=== PATIENT | female | born 1985 | race Two or more races ===

== ENCOUNTER 2023-08-16 20:40 | Inpatient (IN) | payer MEDICAID ==
[~2023-08-16] VITALS: Ht 157.5 cm; Wt 113.4 kg
[2023-08-16 21:56] VITALS: BP 124/76; TEMP 97.9; O2SAT 98
[2023-08-16] MEDS ORDERED: IV NS 0.9% 1,000 ML IV PRN (23:30)
[2023-08-16] MEDS ORDERED: ONDANSETRON HCL/PF 4 MG/2 ML VIAL IVP PRN (23:30)
[2023-08-16] MEDS ORDERED: MAG HYDROX/AL HYDROX/SIMETH 30 ML UDC PO PRN (23:30)
[2023-08-16] MEDS ORDERED: MAGNESIUM HYDROXIDE 30 ML UDC PO PRN (23:30)
[2023-08-16] MEDS ORDERED: ZOLPIDEM TARTRATE 5 MG TABLET PO PRN (23:30)
[2023-08-16] MEDS ORDERED: Z GUARD REMEDY 4 OZ OINT TP PRN (23:30)
[2023-08-16] MEDS ORDERED: ACETAMINOPHEN 325 MG TABLET PO PRN (23:30)
[2023-08-17] VITALS: BP 104/64; TEMP 97.7; O2SAT 97
[2023-08-17 04:00] VITALS: BP 102/76; TEMP 97.5; O2SAT 96
[2023-08-17 05:55] LABS: BASOPHILS % (AUTO) 0.5 % (0.0-2.0); EOSINOPHILS # (AUTO) 0.1 K/uL (0.0-0.7); EOSINOPHILS % (AUTO) 2.3 % (0.0-6.0); HEMATOCRIT 39 % (33-45); HEMOGLOBIN 12.9 g/dL (11.5-14.8); LYMPHOCYTES # (AUTO) 2.4 K/uL (0.8-4.8); LYMPHOCYTES % (AUTO) 38.2 % (20.0-44.0); MEAN CORPUSCULAR HEMOGLOBIN 31 PG (26.0-33.0); MEAN CORPUSCULAR HGB CONC 34 g/dl (31.0-36.0); MEAN CORPUSCULAR VOLUME 91 fL (82-100); MONOCYTES # (AUTO) 0.5 K/uL (0.1-1.30); MONOCYTES % (AUTO) 8.1 % (2.0-12.0); NEUTROPHILS # (AUTO) 3.1 K/uL (1.8-8.9); NEUTROPHILS % (AUTO) 50.9 % (43.0-81.0); PLATELET COUNT (AUTO) 259 K/uL (150-450); RED BLOOD CELL COUNT(AUTO) 4.23 MIL/uL (4.0-5.2); RED CELL DISTRIBUTION WIDTH 13.8 % (11.5-15.0); WHITE BLOOD COUNT (AUTO) 6.2 K/uL (4.3-11.0)
[2023-08-17 06:13] LABS: CALCIUM, SERUM 7.8 mg/dL (8.5-10.1); CREATININE 0.5 mg/dL (0.6-1.3); MAGNESIUM 1.9 mg/dL (1.8-2.4); PHOSPHORUS 4.1 mg/dL (2.5-4.9); POTASSIUM 3.4 mmol/L (3.5-5.1)
[2023-08-17 08:00] VITALS: BP_SYST 105; BP_SYST 114; BP_SYST 98; BP_DIAS 69; BP_DIAS 74; BP_DIAS 81; TEMP 98.4; O2SAT 98
[2023-08-17] MEDS ORDERED: POTASSIUM CHLORIDE 20 MEQ TAB.PRT.SR PO ONE (08:00)
[2023-08-17 12:00] VITALS: BP 106/74; TEMP 98.1; O2SAT 97
[2023-08-17] MEDS ORDERED: ASPIRIN 81 MG TAB.CHEW PO SCH (15:00)
[2023-08-17 16:00] VITALS: BP 109/78; TEMP 98.6; O2SAT 99
[2023-08-17 19:24] LABS: THYROID STIMULATING HORMONE 2.406 uIU/mL (0.358-3.74)
[2023-08-17 20:00] VITALS: BP 126/83; TEMP 98.1; O2SAT 99
== END 2023-08-17 23:21 | disposition left against medical advice (07) | DRG 58 ==
LOC: TELE1 20:40
PROVIDERS: ADMIT Nurse Practitioner Acute Care
DX: G47.14 Hypersomnia due to medical condition (principal); G45.0 Vertebro-basilar artery syndrome; R56.9 Unspecified convulsions; E66.01 Morbid (severe) obesity due to excess calories; G47.33 Obstructive sleep apnea (adult) (pediatric); Z68.42 Body mass index [BMI] 45.0-49.9, adult; Z91.81 History of falling; Z87.820 Personal history of traumatic brain injury
CPT/HCPCS: 36415; 80048-TC; 80061-TC; 83735-TC; 84100-TC; 84439-TC; 84443-TC; 85025-TC; 93307-TC; G0378